=== PATIENT | male | born 1955 | race African-American/Black ===

== ENCOUNTER 2020-01-24 11:34 | Emergency (ER) | payer MEDICARE ==
[2020-01-24] MEDS ORDERED: HYDROCODONE/APAP 5/325 MG TAB ONE (12:54)
[2020-01-24] MEDS ORDERED: DIAZEPAM 5 MG TABLET ONE (12:54)
--- NOTE | 2020-01-24 13:21 | RAD REPORT ---
EXAM DESCRIPTION: RAD - C Spine Ap/Lat - 01/24/2020 1:15 pm CLINICAL HISTORY: Radiculopathy FINDINGS: No fracture or dislocation is seen. Mild spondylosis involves mid and distal cervical spine
--- NOTE | 2020-01-24 13:22 | RAD REPORT ---
EXAM DESCRIPTION: RAD - Shoulder Left 2 View - 01/24/2020 1:15 pm CLINICAL HISTORY: Left shoulder pain FINDINGS: No fracture or dislocation is seen. Marked osteoarthritis involves the glenohumeral joint consisting of osteophytes, subchondral sclerosi s, subchondral cysts and joint space narrowing
--- NOTE | 2020-01-24 13:37 | EDPHYS ---
Physician Documentation [facility] Name: Jensen Young Age: 64 yrs Sex: Male : 1955 Arrival Date: 01/24/2020 Time: 11:36 Bed 12 Private MD: ED Physician Gilbert Jain HPI: 01/23 12:35 This 64 yrs old Black Male presents to ER via Ambulatory with complaints of Shoulder jmm Pain. 12:35 The patient or guardian complains of pain. Onset: The symptoms/episode began/occurred jmm gradually, 1 week(s) ago. Modifying factors: the symptoms are alleviated by nothing. The symptoms are aggravated by movement, rotation of arm. Associated signs and symptoms: Pertinent negatives:. This is a 64 year old male with a history of htn, dm that presents to the ED with complaints of left shoulder pain which radiates down the left arm. Denies known injury. . Historical: - Allergies: 11:48 No Known Allergies; aa5 - PMHx: 11:48 Hypertension; Diabetes - NIDDM; aa5 - PSHx: 11:48 L-5 back surgery; Left hip; aa5 - Immunization history:: Flu vaccine is up to date. - Social history:: Smoking status: Patient denies any tobacco usage or history of. ROS: 12:35 Constitutional: Negative for fever, chills, and weight loss, Cardiovascular: Negative jmm for chest pain, palpitations, and edema, Respiratory: Negative for shortness of breath, cough, wheezing, and pleuritic chest pain. 12:35 MS/extremity: Positive for pain, swelling. 12:35 All other systems are negative. Exam: 12:35 Constitutional: This is a well developed, well nourished patient who is awake, alert, jmm and in no acute distress. Head/Face: atraumatic. Eyes: EOMI, no conjunctival erythema appreciated ENT: Moist Mucus Membranes Neck: Trachea midline, Supple Chest/axilla: Normal chest wall appearance and motion. Cardiovascular: Regular rate and rhythm. 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 12:35 Skin: Appearance: Color: normal in color. 12:35 Neuro: Orientation: is normal, Mentation: is normal, Memory: is normal. 12:35 Psych: Behavior/mood is pleasant, cooperative. Vital Signs: 11:45 BP 144 / 94; Pulse 93; Resp 18 S; Temp 98.8(TE); Pulse Ox 100% on R/A; Weight 81.65 kg aa5 (R); Height 5 ft. 8 in. (172.72 cm) (R); Pain 9/10; 11:45 Body Mass Index 27.37 (81.65 kg, 172.72 cm) aa5 MDM: 12:03 Patient medically screened. [facility] 12:40 Data reviewed: vital signs, nurses notes. [facility] 13:35 Data reviewed: radiologic studies, plain films. Counseling: I had a detailed discussion [facility] with the patient and/or guardian regarding: the historical points, exam findings, and any diagnostic results supporting the discharge/admit diagnosis, radiology results, the need for outpatient follow up, to return to the emergency department if symptoms worsen or persist or if there are any questions or concerns that arise at home. ED course: Pain decreased in the ED. Patient advised to follow up with orthopedics for further evaluation. Patient otherwise given strict return precautions. Patient understood and agrees with the plan of care. . 01/23 12:33 Order name: Shoulder Left (2 View) XRAY [facility] 01/23 12:34 Order name: C Spine Ap/Lat XRAY [facility] 01/23 13:26 Order name: RAD; Complete Time: 13:35 [facility] 01/23 13:26 Order name: RAD; Complete Time: 13:35 [facility] 01/23 13:53 Order name: Sling; Complete Time: 14:19 [facility] Administered Medications: 12:52 Drug: Spring 5 mg-325 mg 2 tabs Route: PO; iw 12:52 Drug: Valium 5 mg Route: PO; iw Disposition: 16:36 Co-signature as Attending Physician, Gilbert Jain MD I agree with the assessment and [facility] plan of care. Disposition: 01/24/20 13:36 Discharged to Home. Impression: Pain in left shoulder. - Condition is Stable. - Discharge Instructions: Shoulder Pain. - Prescriptions for Ibuprofen 800 mg Oral Tablet - take 1 tablet by ORAL route every 12 hours As needed take with food; 20 tablet. orphenadrine citrate 100 mg Oral Tablet Sustained Release - take 1 tablet by ORAL route 2 times per day As needed; 20 tablet. - Medication Reconciliation Form, Thank You Letter, Antibiotic Education, Prescription Opioid Use form. - Follow up: Private Physician; When: 2 - 3 days; Reason: Recheck today's complaints, Continuance of care, Re-evaluation by your physician. Signatures: Dispatcher [employer] EDGilbert Denney MD MD cha Mickail, Joel, PA PA jmm Williams, Irene, RN RN Deborah Peter RN RN aa5 Corrections: (The following items were deleted from the chart) 14:20 13:36 01/24/2020 13:36 Discharged to Home. Impression: Pain in left shoulder. Condition iw is Stable. Forms are Medication Reconciliation Form, Thank You Letter, Antibiotic Education, Prescription Opioid Use. Follow up: Private Physician; When: 2 - 3 days; Reason: Recheck today's complaints, Continuance of care, Re-evaluation by your physician. marina
--- NOTE | 2020-01-24 13:37 | ER ---
Nurse's Notes [facility] Name: Jensen Young Age: 64 yrs Sex: Male : 1955 Arrival Date: 01/24/2020 Time: 11:36 Bed 12 Private MD: Diagnosis: Pain in left shoulder Presentation: 01/23 11:45 Chief complaint: Patient states: left shoulder pain that began 2 weeks ago. Pt denies aa5 known injury. Pt states "It's difficult for me to lift my arm up". Coronavirus screen: The patient has NOT traveled to a country currently being monitored by the [facility] within the last 14 days. The patient has NOT had contact with any known and/or suspected case of coronavirus. Ebola Screen: Patient negative for fever greater than or equal to 101.5 degrees Fahrenheit, and additional compatible Ebola Virus Disease symptoms. Initial Sepsis Screen: Does the patient meet any 2 criteria? No. Patient's initial sepsis screen is negative. Does the patient have a suspected source of infection? No. Patient's initial sepsis screen is negative. Risk Assessment: Do you want to hurt yourself or someone else? Patient reports no desire to harm self or others. 11:45 Method Of Arrival: Ambulatory aa5 11:45 Acuity: [place] 4 aa5 Triage Assessment: 14:20 General: Appears in no apparent distress. Behavior is calm. iw Historical: - Allergies: 11:48 No Known Allergies; aa5 - PMHx: 11:48 Hypertension; Diabetes - NIDDM; aa5 - PSHx: 11:48 L-5 back surgery; Left hip; aa5 - Immunization history:: Flu vaccine is up to date. - Social history:: Smoking status: Patient denies any tobacco usage or history of. Screenin:19 Abuse screen: Denies threats or abuse. Denies injuries from another. Nutritional iw screening: No deficits noted. Tuberculosis screening: No symptoms or risk factors identified. Fall Risk None identified. Assessment: 11:50 General: Appears comfortable, Behavior is calm, cooperative. Pain: Complains of pain in aa5 left shoulder Quality of pain is described as sharp, shooting, Is continuous, Aggravated by increased activity. Neuro: Level of Consciousness is awake, alert, obeys commands, Oriented to person, place, time, situation. Cardiovascular: Patient's skin is warm and dry. Respiratory: Airway is patent Respiratory effort is even, unlabored, Respiratory pattern is regular, symmetrical. GI: No signs and/or symptoms were reported involving the gastrointestinal system. : No signs and/or symptoms were reported regarding the genitourinary system. EENT: No signs and/or symptoms were reported regarding the EENT system. Derm: Skin is pink, warm \\T\\ dry. Musculoskeletal: Reports pain in left shoulder. Vital Signs: 11:45 BP 144 / 94; Pulse 93; Resp 18 S; Temp 98.8(TE); Pulse Ox 100% on R/A; Weight 81.65 kg aa5 (R); Height 5 ft. 8 in. (172.72 cm) (R); Pain 9/10; 11:45 Body Mass Index 27.37 (81.65 kg, 172.72 cm) aa5 ED Course: 11:36 Patient arrived in ED. ag5 11:45 Arm band placed on. aa5 11:47 Triage completed. [facility] 11:48 Deborah Gasca, RN is Primary Nurse. [facility] 11:53 Jaziel Romero PA is PHCP. [facility] 11:53 Gilbert Jain MD is Attending Physician. [facility] 12:00 Patient has correct armband on for positive identification. iw 14:20 No provider procedures requiring assistance completed. Patient did not have IV access iw during this emergency room visit. Administered Medications: 12:52 Drug: [place] 5 mg-325 mg 2 tabs Route: PO; iw 12:52 Drug: Valium 5 mg Route: PO; iw Outcome: 13:36 Discharge ordered by . [facility] 14:19 Discharged to home ambulatory. iw 14:19 Condition: good 14:19 Discharge instructions given to patient, Instructed on discharge instructions, follow up and referral plans. medication usage, Demonstrated understanding of instructions, follow-up care, medications, Prescriptions given X 2. 14:20 Patient left the ED. iw Signatures: Jaziel Romero PA PA jmm Williams, Irene, RN RN Deborah Gasca RN RN [facility] Familia Cm [facility]
[2020-01-24 14:55] VITALS: BP 117/71; TEMP 97.6; O2SAT 98
== END 2020-01-24 14:20 | disposition home or self-care (01) ==
LOC: ER 11:34
DX: M25.512 Pain in left shoulder (principal)
CPT/HCPCS: 72040; 99283

== ENCOUNTER 2023-09-25 11:32 | Emergency (ER) | payer MEDICARE, OTHER ==
--- OUTSIDE RECORDS SUMMARY | 2023-09-25 11:36 | XMS REPORT | Continuity of Care Document ---
:1955 Author Organization [facility] t Address [address] [facility] [address] [address] [place] [address] Care Team Providers Name Role Phone Brady Xavier Primary Care Physician Wes Oropeza Attending Clinician Unavailable Doctor Unassigned, [place] Attending Clinician Unavailable Charisma Hussein Attending Clinician UNKNOWN Attending Clinician Unavailable Payers Payer Name Policy Type Policy Number Effective Date Expiration Date S [facility] [id number] 2021 (MEDICARE 00:00:00 REPLACEMENT HMO) Problems This patient has no known problems. Allergies, Adverse Reactions, Alerts Allergy Allergy Status Severity Reaction(s) Onset Inactive Treating Comm ents Source Name Type Date Date Clinician No Known DA Active U 2020-0 [facility] 06-02 [facility] 00:00: [facility] 00 [facility] No Known DA Active U 2020-0 [facility] Allergie 06-02 [facility] 00:00: [facility] 00 [facility] No Known DA Active U 2020-0 [facility] Allergie 05-26 [facility] 00:00: [facility] 00 [facility] No Known DA Active U 2020-0 [facility] Allergie 05-26 [facility] 00:00: [address] NO KNOWN Drug Active Univers ALLERGIE Class ity of [facility] Social History Social Habit Start Date Stop Date Quantity Comments Source Exposure to Not sure [facility] SARS-CoV-2 (event) [facility] [place] Sex Assigned At [birth year] [facility] [place] [facility]:00 [facility] Branch Smoking Status Start Date Stop Date Source Tobacco [facility] consumption [facility] Medications Ordered Filled Start Stop Current Ordering Indication Dosage Frequency Signature Comments Components Source Medication Medication Date Date Medication? Clinician (SIG) Name Name ibuprofen No 600mg 600 mg, Uni vers (IBU) 06-24 Oral, ity of tablet 600 01:15: 01:29 ONCE, 1 Jigar as mg 00 :00 dose, Wed Medical 06/23/21 at Branch 2014, CHARLES methocarbam No 500mg 500 mg, U nivers oL 06-24 Oral, ity of (ROBAXIN) 01:15: 01:29 ONCE, 1 [place] tablet 500 [place] :00 dose, Mon Medi biju mg 06/23/21 at [place] 2014, Routine ibuprofen Yes [id number] 600mg Take 1 Univers 600 mg 8-04 tablet by ity of tablet 00:00: mouth [place] 00 every 6 Medical (six) Branch hours as needed for Pain (scale 4-6). methocarbam Yes [id number] 500mg Take 1 Univers oL 500 mg 8-04 tablet by ity o f tablet 00:00: mouth 00 (four) Medical times Branch daily. ibuprofen Yes [id number] 600mg Take 1 Univers 600 mg 8-04 tablet by ity of tablet 00:00: mouth [place] 00 every 6 Medical (six) Branch hours as needed for Pain (scale 4-6). methocarbam Yes [id number] 500mg Take 1 Univers oL 500 mg 8-04 tablet by ity o f tablet 00:00: mouth 4 00 (four) Medical times Branch daily. Vital Signs Vital Name Observation Time Observation Value Comments Source Systolic blood 2021-06-24 01:30:00 150 mm[Hg] [facility] Diastolic blood 2021-06-24 01:30:00 84 mm[Hg] Unive [facility] Heart rate 2021-06-24 01:30:00 78 /min [facility] Body temperature 2021-06-24 01:30:00 37.39 [facility]te [facility] Respiratory rate 2021-06-24 01:30:00 18 /min [facility] Oxygen saturation in 2021-06-24 01:30:00 100 /min [facility] Arterial blood by [facility] Pulse oximetry Branch Body weight 2021-06-23 22:19:00 81.647 kg [facility] Procedures Procedure Date / Time Performing Clinician Source Performed AUTHORIZATION FOR 2022-10-03 06:01:00 Doctor Unassigned, No [facility] RELEASE OF [facility] XR HIPS 2 VW LEFT 2021-06-24 00:55:28 Charisma Haque [facility] XR CERVICAL SPINE 3 VW 2021-06-24 00:55:11 Charisma Haque [facility] NOTICE OF PRIVACY 2021-06-23 22:13:58 Doctor Unassigned, No Univ [facility] PRACTICES [facility] CONSENT/REFUSAL FOR 2021-06-23 22:12:03 [facility] Encounters Start End Encounter Admission Attending Care Care Encounter Source Date/Time Date/Time Type Type Clinicians Facility Department ID 2020-06-02 Inpatient Wes Oropeza [facility] ENDO [id number] [facility] 09:00:00 33 [facility] 2022-10-03 2022-10-03 Orders Doctor PULLIAM [id number] [facility] 00:00:00 00:00:00 Only UnassignedTANGELA [id number] ity of [place] [facility] [id number] Jigar as [id number] [facility] 009 Branch 2021-12-06 2021-12-06 Outpatient DMG DMG [id number] [facility] 08:00:00 08:00:00 [id number] Medica l [facility] 2021-06-23 2021-06-23 Emergency Charisma Haque [id number] Univers 17:21:00 20:33:00 Chinyere Merritt [id number] i ty [facility] [id number] [facility] [id number] [place] [id number] Branch 2021-06-23 2021-06-23 Emergency X [facility] ERT [id number] Univers 17:21:00 17:21:[address] [facility] 2020-05-26 2020-05-26 Outpatient UNKNOWN [facility] LABO [id number] [facility] 12:34:00 12:34:00 86 [facility] 2020-05-26 2020-05-26 Outpatient UNKNOWN [facility] LABO [id number] [facility] 12:34:00 12:34:00 86 [facility] Results Test Description Test Time Test Comments Results Result Comments Source SURGICAL SPECIMENS 2020-06-04 14:42:00 RUN DATE: 06/04/20 [facility] - LAB PAGE 1 RUN TIME: 1442 Specimen Inquiry RUN USER: INTERFACE ROSARIO IENT: DUC GARZA LOC: TAYA U #: [id number] AGE/SX: 64/M ROOM: RE06/02/20REG DR: Wes Oropeza MD : 53 BED: DIS: STATUS: [facility] TLOC: SPEC #: [id number] RECD: 06/02/20 STATUS: JACLYN SRIVASTAVA #: [id number] HARISH: 06/02/[address] [facility] [address]: Wes Oropeza MD ENTERED: 06/02/20 SP TYPE: SURG OTHR DR: Brady Xavier MD ORDERED: PATHGM4/3, PATH SPEC, H E STAIN/3 HISTOLOGY: TISSUE ID BLK PCS MEERA LEV / PROCEDURE DISPOSITION ____ ___ ___ ___ ___ CECUM POLYP A 1 3 1 CECUM BIOPSY B 1 3 1 SIGMOID COLON P C 1 3 1 TISSUES: A. CECUM POLYP - Cecal Polyp B. CECUM BIOPSY - Cecal Bx C. SIGMOID COLON POLYP - Sigmoid Colon Polyp CLINICAL HISTORY Colon Screen FINAL DIAGNOSIS CECAL POLYP: - COLONIC MUCOSA WITH EPITHELIAL HYPERPLASIA, CHRONIC INFLAMMATION, AND ACUTE CRYPTITIS, SEE COMMENT - NO PARASITE, GRANULOMA, DYSPLASIA, OR MALIGNANCY IS IDENTIFIED CECUM, BIOPSY: - COLONIC MUCOSA WITH EPITHELIAL HYPERPLASIA, CHRONIC INFLAMMATION, AND ACUTE CRYPTITIS, SEE COMMENT - NO PARASITE, GRANULOMA, DYSPLASIA, OR MALIGNANCY IS IDENTIFIED SIGMOID COLON POLYPS: - HYPERPLASTIC POLYPS Comment: The biopsies obtained from the cecum show changes that may represent an inflamed hyperplastic polyp versus colonic mucosa with chronic active colitis. Clinical correlation is suggested. Please contact pathology with any questions or concerns. CPT 40840 X 3 CONTINUED ON NEXT PAGE RUN DATE: 06/04/20 [facility] - LAB PAGE 2 RUN TIME: 1442 Specimen Inquiry RUN USER: INTERFACE ALKA Carrion #: [id number] PATIENT: KAYLADUC DUBON #[id number] (Continued)-------- -------- GROSS DESCRIPTION The specimen is received in three separate parts each labeled with patient's name and medical record number. Specimen A "cecal polyp" are five ponce-pink tissue fragments, 0.1 to 0.2 cm, submitted in A. Specimen B "cecal biopsy" are two ponce-pink tissue fragments, 0.1 and 0.3 cm, submitted in B. Specimen C "sigmoid colon polyps"are four ponce-pink tissue fragments, 0.2 cm each, submitted in C. CM/th -- Signed SIGNATURE ON FILE Beata Saha MD 06/04/20 1445 END OF REPORT GLUBED 2020-06-02 18:14:00 Test Item Value Reference Range Interpretation Comme nts GLUBED (test code = GLUBED) 158 MG/DL 70-105 H Novel Coronavirus 2018 [id number] 06:14:00 Test Item Value Reference Range Interpretation Comments Novel Coronavirus 2018 Inhouse (test Negative Negative code = COVNONPUI) Testing Criteria: Preprocedure ScreeningNovel Coronavirus 2018 [id number] 06:13:00 Test Item Value Reference Range Interpretation Comments Novel Coronavirus 2018 Inhouse (test Negative Negative code = COVNONPUI) Testing Criteria: Preprocedure Screening
--- NOTE | 2023-09-25 12:44 | RAD REPORT ---
EXAM DESCRIPTION: RAD - Femur Right - 09/25/2023 12:36 pm CLINICAL HISTORY: PAIN COMPARISON: No comparisons FINDINGS: Mild osteoarthritis of the right hip. No fracture, dislocation or AVN pattern observed.
--- NOTE | 2023-09-25 12:50 | RAD REPORT ---
EXAM DESCRIPTION: RAD - Tib Fib Right - 09/25/2023 12:36 pm CLINICAL HISTORY: PAIN COMPARISON: No comparisons TECHNIQUE: Right tibia and fibula, 2 views. FINDINGS: No fracture is identified. There is no dislocation or periosteal reaction noted. No acute or suspicious bony finding. No foreign body or other soft tissue abnormality. IMPRESSION: Negative right tibia & fibula examination.
--- NOTE | 2023-09-25 12:54 | RAD REPORT ---
EXAM DESCRIPTION: RAD - Ankle Right 3 View - 09/25/2023 12:36 pm CLINICAL HISTORY: PAIN COMPARISON: No comparisons TECHNIQUE: Right ankle, 3 views. FINDINGS: No fracture, dislocation or periosteal reaction. Mild cortical irregularity at the tip of the medial malleolus, nonspecific, and may relate to sequelae of remote sprain or ligamentous injury. No joint effusion seen. No joint space narrowing. Mild soft tissue swelling about the ankle. Vascula r calcifications. IMPRESSION: No acute osseous abnormality of the ankle. Other findings as above
[2023-09-25] MEDS ORDERED: HYDROCODONE/APAP 10/325 TAB ONE (12:55)
--- NOTE | 2023-09-25 13:27 | ER ---
Nurse's Notes [facility] Name: Jensen Young Age: 68 yrs Sex: Male : 1955 Arrival Date: 09/25/2023 Time: 11:32 Bed 12 Private MD: Diagnosis: Strain of muscle, fascia and tendon of the posterior muscle group at thigh level, right thigh;Contusion of right ankle Presentation: 09/25 11:47 Chief complaint: Patient states: as i was mowing my yard, i made a turn and the handle iw came off, he ran it into the side of truckand jammed his right leg in the side of his truck, now having pain in back of right leg and ankle. Coronavirus screen: At this time, the client does not indicate any symptoms associated with coronavirus-19. Ebola Screen: Patient negative for fever greater than or equal to 101.5 degrees Fahrenheit, and additional compatible Ebola Virus Disease symptoms Patient denies exposure to infectious person. Patient denies travel to an Ebola-affected area in the 21 days before illness onset. No symptoms or risks identified at this time. Initial Sepsis Screen: Does the patient meet any 2 criteria? No. Patient's initial sepsis screen is negative. Does the patient have a suspected source of infection? No. Patient's initial sepsis screen is negative. Risk Assessment: Do you want to hurt yourself or someone else? Patient reports no desire to harm self or others. Onset of symptoms was September 22, 2023. 11:47 Method Of Arrival: Wheelchair iw 11:47 Acuity: [place] 4 iw Historical: - Allergies: 11:59 No Known Allergies; iw - PMHx: 11:49 Diabetes - NIDDM; Hypertension; iw - Family history:: not pertinent. - Hospitalizations: : No recent hospitalization is reported. Screenin:[address] [facility] ED Fall Risk Assessment (Adult) Score/Fall Risk Level 0 - 2 = Low Risk. Abuse iw screen: Denies threats or abuse. Denies injuries from another. Nutritional screening: No deficits noted. Tuberculosis screening: No symptoms or risk factors identified. Assessment: 11:50 General: Appears in no apparent distress. Pain: Complains of pain in right leg. Neuro: iw Level of Consciousness is awake, alert, obeys commands, Oriented to person, place, time, situation. Derm: Skin is intact, is healthy with good turgor. Musculoskeletal: Capillary refill < 3 seconds, Reports pain in right foot and right leg. 12:44 Reassessment: No changes from previously documented assessment. Patient and/or family ll1 updated on plan of care and expected duration. Pain level reassessed. Patient is alert, oriented x 3, equal unlabored respirations, skin warm/dry/pink. Vital Signs: 11:47 BP 159 / 85; Pulse 105; Resp 16; Temp 98.6; Pulse Ox 100% on R/A; iw 11:59 Weight 72.57 kg; iw ED Course: 11:37 Patient arrived in ED. mg5 11:39 Bronson Laboy MD is Attending Physician. rn 11:49 Triage completed. iw 12:38 XRAY Femur RIGHT In Process Unspecified. EDMS 12:38 XRAY Tib Fib RIGHT In Process Unspecified. EDMS 12:38 XRAY Ankle RIGHT 3 view In Process Unspecified. EDMS 13:19 Floridalma Ohara RN is Primary Nurse. iw 13:26 Patient has correct armband on for positive identification. Provided Education on: . iw Administered Medications: 12:44 Drug: HYDROcodone-acetaminophen PO 10 mg-325 mg 1 tabs PO once Route: PO; ll1 13:00 Follow up: Response: No adverse reaction iw Outcome: 13:27 Discharge ordered by . rn 13:50 Patient left the ED. kc6 Signatures: Dispatcher [employer] EDMS Floridalma Ohara, KIRA MALONE iw Bronson Laboy MD MD rn Lewis, Lynsay, RN RN ll1 Imelda Watson RN RN [facility] Daphne Olivares mg5
--- NOTE | 2023-09-25 13:28 | EDPHYS ---
Physician Documentation [facility] Name: Jensen Young Age: 68 yrs Sex: Male : 1955 Arrival Date: 09/25/2023 Time: 11:32 Bed 12 Private MD: ED Physician Bronson aLboy HPI: 09/25 13:23 This 68 yrs old Black Male presents to ER via Wheelchair with complaints of Ankle rn Injury, Groin Injury. 13:23 The patient presents with decreased range of motion, an injury, pain. The complaints rn affect the right ankle. Onset: The symptoms/episode began/occurred 5 day(s) ago. Context: The problem was sustained at home, resulted from Crashed his 0 turn mower into his truck. Modifying factors: The symptoms are alleviated by nothing, the symptoms are aggravated by weight bearing, movement. Severity of symptoms: At their worst the symptoms were moderate, in the emergency department the symptoms are unchanged. The patient has not experienced similar symptoms in the past. Patient reports loss control of his 0 turn mower when it broke and crushed into his truck with his right leg extended, reports pain to right hamstring and right ankle.. Historical: - Allergies: 11:59 No Known Allergies; iw - PMHx: 11:49 Diabetes - NIDDM; Hypertension; iw - Family history:: not pertinent. - Hospitalizations: : No recent hospitalization is reported. ROS: 13:23 Constitutional: Negative for fever, chills, and weight loss, MS/Extremity: Positive for rn injury and pain to right leg Skin: Negative for injury, rash, and discoloration, Exam: 13:23 Constitutional: This is a well developed, well nourished patient who is awake, alert, rn and in no acute distress. MS/ Extremity: Pulses equal, no cyanosis. Neurovascular intact. Mild tenderness right hamstring region without swelling or hematoma noted. No bony tenderness. Full range of motion of right knee. Moderate tenderness medial malleolus of right ankle. No foot tenderness or deformity. Vital Signs: 11:47 BP 159 / 85; Pulse 105; Resp 16; Temp 98.6; Pulse Ox 100% on R/A; iw 11:59 Weight 72.57 kg; iw MDM: 11:39 Patient medically screened. rn 13:23 Differential diagnosis: fracture, sprain. Data reviewed: vital signs, nurses notes, rn radiologic studies, plain films, and as a result, I will discharge patient. Counseling: I had a detailed discussion with the patient and/or guardian regarding the historical points, exam findings, and any diagnostic results supporting the discharge/admit diagnosis, radiology results, the need for outpatient follow up, to return to the emergency department if symptoms worsen or persist or if there are any questions or concerns that arise at home. Response to treatment: the patient's symptoms have mildly improved after treatment, and as a result, I will discharge patient. Special discussion: I discussed with the patient/guardian in detail that at this point there is no indication for admission to the hospital. It is understood, however, that if the symptoms persist or worsen the patient needs to return immediately for re-evaluation. Based on the history and exam findings, there is no indication for further emergent testing or inpatient evaluation. I discussed with the patient/guardian the need to see the orthopedic surgeon for further evaluation of the symptoms. ED course: No acute findings on x-rays. Does show possibly remote injury to the medial malleolus in the past. Patient does not recall previous injury so will place in walking boot for now with reevaluation and if does not improve with splinting will need to follow-up with orthopedics.. 09/25 11:52 Order name: XRAY Femur RIGHT; Complete Time: 13:18 rn 09/25 11:52 Order name: XRAY Tib Fib RIGHT; Complete Time: 13:18 rn 09/25 11:52 Order name: XRAY Ankle RIGHT 3 view; Complete Time: 13:18 rn 09/25 13:23 Order name: Walking boot rn Administered Medications: 12:44 Drug: HYDROcodone-acetaminophen PO 10 mg-325 mg 1 tabs PO once Route: PO; ll1 13:00 Follow up: Response: No adverse reaction iw Disposition Summary: 09/25/23 13:27 Discharge Ordered Notes: Location: Home rn Problem: new rn Symptoms: have improved rn Condition: Stable rn Diagnosis - Strain of muscle, fascia and tendon of the posterior muscle group at thigh level, rn right thigh - Contusion of right ankle rn Followup: rn - With: Private Physician - When: As needed - Reason: Recheck today's complaints, Re-evaluation by your physician Discharge Instructions: - Discharge Summary Sheet rn - Ankle Sprain rn - Hamstring Strain rn Forms: - Medication Reconciliation Form rn - Thank You Letter rn - 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
[2023-09-25 13:55] VITALS: BP 159/85; TEMP 98.6; O2SAT 100
== END 2023-09-25 13:50 | disposition home or self-care (01) ==
LOC: ER 11:32
DX: S76.311A Strain of muscle, fascia and tendon of the posterior muscle group at thigh level, right thigh, initial encounter (principal); S90.01XA Contusion of right ankle, initial encounter
CPT/HCPCS: 99282